=== PATIENT | female | born 1960 | race African-American/Black ===

== ENCOUNTER 2017-02-28 01:14 | Emergency (ER) | payer OTHER ==
--- NOTE | ~2017-02-28 | EKG ---
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
[~2017-02-28 01:14] MED LIST: DILTIAZEM 24HR120 M2 PO; KLOR-CON 1010 MEQ PO; LEVAQUIN 500 M500 M4 PO; LEVAQUIN 500 M500 M6 PO; MAALOX ADVANCE355 M1 PO; MOBIC15 MG PO; NOHOMEMEDICATIONS; OSELB75 PO; PROTONIX40 M1 PO; TOPROL XL25 MG PO
[2017-02-28 03:23] LABS: URINE BILIRUBIN NEGATIVE (Negative); URINE BLOOD NEGATIVE (Negative); URINE COLOR YELLOW; URINE GLUCOSE-RANDOM* NEGATIVE (Negative); URINE KETONES NEGATIVE (Negative); URINE NITRITE NEGATIVE (Negative); URINE PROTEIN (DIPSTICK) NEGATIVE (Negative); URINE SPECIFIC GRAVITY < 1.005 (1.003-1.035); URINE UROBILINOGEN 0.2 E.U./dl (0.2-1.0)
[2017-02-28 03:24] LABS: ALBUMIN 3.9 g/dL (3.4-5.0); ALKALINE PHOSPHATASE 89 U/L (46-116); ANION GAP 13 mmol/L (7-16); BUN 10 mg/dL (7-18); CALCIUM 9.2 mg/dL (8.5-10.1); CHLORIDE 104 mmol/L (98-107); CO2 24 mmol/L (21-32); CREATININE 0.9 mg/dL (0.6-1.0); GLUCOSE 121 mg/dL (74-106); POTASSIUM 3.5 mmol/L (3.5-5.1); SGOT 21 U/L (15-37); SGPT 30 U/L (30-65); SODIUM 141 mmol/L (136-145); TOTAL BILIRUBIN 0.4 mg/dL (<0.1-1.0); TROPONIN-I < 0.04 ng/mL (<0.04-0.07)
[2017-02-28 03:25] LABS: EOSINOPHILS 0.1 % (0.0-3.0); HEMATOCRIT 35.1 % (37.0-47.0); HEMOGLOBIN 12.2 gm/dL (12.0-15.0); LYMPHOCYTES 24.5 % (24.0-44.0); MANUAL DIFF NO; MCH 35.4 pg (26.0-34.0); MCHC 34.7 % (28.0-37.0); MCV 102.2 fL (80.0-100.0); MONOCYTES 7.7 % (1.0-8.0); PLATELET COUNT 250 thou/uL (150-400); POLYS 67.1 % (36.0-66.0); RBC 3.44 mil/uL (4.20-5.00); RDW 14.7 % (10.5-14.5); WBC 8.7 thou/uL (4.0-11.0)
[2017-02-28 03:26] LABS: ABSOLUTE NEUTROPHILS 5.9 thou/uL (1.4-8.2); BASOPHILS 0.6 % (0.0-2.0)
== END 2017-02-28 04:48 | disposition home or self-care (01) ==
LOC: ER 01:14
PROVIDERS: Emergency Medicine
DX: R07.89 Other chest pain (principal); I10 Essential (primary) hypertension; E78.00 Pure hypercholesterolemia, unspecified; Z98.890 Other specified postprocedural states; F10.99 Alcohol use, unspecified with unspecified alcohol-induced disorder

== ENCOUNTER 2017-12-07 16:55 | Emergency (ER) | payer BC, OTHER ==
[~2017-12-07] VITALS: Ht 160 cm; Wt 62.1 kg
--- NOTE | ~2017-12-07 | EKG ---
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: ISRAELISAIAS : 1960 Requested By: Alexandre Orlando Order Number: [id number] MD: Michael Rubio Measurements Intervals [place] Rate: 114 P: 51 FL: 134 QRS: 16 QRSD: 76 T: 3 QT: 308 QTc: 425 Interpretive Statements Sinus tachycardia Probable left atrial enlargement Nonspecific ST segment abnormalities Compared to ECG 02/28/2017 01:23:11 Sinus rhythm no longer present Electronically Signed On 12-08-2017 11:35:15 CDT by Michael Rubio [email or web address] <ELECTRONICALLY SIGNED> By: Michael Rubio MD 12/08/17 1135 1705 1705 MD VIMAL Tinsley
[2017-12-07 17:46] LABS: ABSOLUTE NEUTROPHILS 3.6 thou/uL (1.4-8.2); BASOPHILS 0.7 % (0.0-2.0); HEMATOCRIT 34.9 % (37.0-47.0); LYMPHOCYTES 35.5 % (24.0-44.0); MCH 33.7 pg (26.0-34.0); MCHC 34.4 g/dL (28.0-37.0); MCV 98.1 fL (80.0-100.0); MONOCYTES 8.9 % (1.0-8.0); PLATELET COUNT 280 thou/uL (150-400); POLYS 53.9 % (36.0-66.0); RBC 3.56 mil/uL (4.20-5.00); RDW 13.7 % (10.5-14.5); WBC 6.7 thou/uL (4.0-11.0)
[2017-12-07 17:50] LABS: ANION GAP 8 mmol/L (7-16); BUN 10 mg/dL (7-18); CALCIUM 9.5 mg/dL (8.5-10.1); CHLORIDE 102 mmol/L (98-107); CO2 27 mmol/L (21-32); CREATININE 0.9 mg/dL (0.6-1.0); GLUCOSE 127 mg/dL (74-106); POTASSIUM 3.6 mmol/L (3.5-5.1); SODIUM 137 mmol/L (136-145)
[2017-12-07 18:00] LABS: ALBUMIN 4.2 g/dL (3.4-5.0); MAGNESIUM 1.9 mg/dL (1.8-2.4); SGOT 20 U/L (15-37); SGPT 15 U/L (30-65); TOTAL BILIRUBIN 0.6 mg/dL (<0.1-1.0); TOTAL PROTEIN 8.5 g/dL (6.4-8.2); TROPONIN-I < 0.04 ng/mL (<0.06)
[2017-12-07 18:09] LABS: APTT 21.4 Seconds (24.5-32.8); PROTIME 9.6 Seconds (9.3-11.4)
[2017-12-07 18:22] LABS: D-DIMER 1.21 ug/mLFEU (0.19-0.50)
[2017-12-07 19:16] LABS: URINE BILIRUBIN NEGATIVE (Negative); URINE BLOOD NEGATIVE (Negative); URINE CLARITY CLEAR; URINE COLOR YELLOW; URINE GLUCOSE-RANDOM* NEGATIVE (Negative); URINE KETONES NEGATIVE (Negative); URINE LEUKOCYTES-REFLEX NEGATIVE (Negative); URINE NITRITE-REFLEX NEGATIVE (Negative); URINE PROTEIN (DIPSTICK) NEGATIVE (Negative); URINE SPECIFIC GRAVITY <= 1.005 (1.005-1.035); URINE UROBILINOGEN 0.2 E.U./dl (0.2-1.0)
[2017-12-07 19:25] LABS: AMP/METHAMP Negative (Negative); BARBITURATES Negative (Negative); BENZODIAZEPINES Negative (Negative); COCAINE Negative (Negative); METHADONE Negative (Negative); OPIATES Negative (Negative); PCP Negative (Negative)
== END 2017-12-07 20:30 | disposition home or self-care (01) ==
LOC: ER 16:55
PROVIDERS: Emergency Medicine
DX: R07.9 Chest pain, unspecified (principal); R06.02 Shortness of breath; E86.0 Dehydration

== ENCOUNTER 2018-05-12 11:27 | Emergency (ER) | payer BC, OTHER ==
[~2018-05-12] VITALS: Ht 157.5 cm; Wt 65.8 kg
--- NOTE | ~2018-05-12 | EKG ---
[address] [place] [address] ELECTROCARDIOGRAM REPORT Name: ILYA MAGALLON Room #: [facility]#: [id number] Admission: 05/12/18 Attend Phys: Discharge: 05/12/18 Date of : 64 Report #: [id number] THIS REPORT FOR: //name// 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: [facility] : 1960 Requested By: Cecy Avendano Order Number: [id number] MD: Atilio Terrazas Measurements Intervals [place] Rate: 103 P: 51 NM: 145 QRS: 12 QRSD: 70 T: 0 QT: 335 QTc: 439 Interpretive Statements Sinus tachycardia Otherwise normal tracing Compared to ECG 12/07/2017 17:05:22 No significant change was found Electronically Signed On 05-13-2018 8:04:58 RN TEACHER by Atilio Terrazas [email or web address] <ELECTRONICALLY SIGNED> By: Atilio Terrazas MD, [facility] 05/13/18 0804 1138 1138 Atilio Terrazas MD, FACC /EPI
[~2018-05-12 11:27] MED LIST changes: +ASPIR 8181 MG PO; +LOVASTATIN 20 M20 MG PO; +MOBIC7.5 MG PO; +NORFLEX100 MG PO
[2018-05-12 12:04] LABS: ANION GAP 12 mmol/L (7-16); BUN 11 mg/dL (7-18); CALCIUM 9.8 mg/dL (8.5-10.1); CHLORIDE 101 mmol/L (98-107); CO2 26 mmol/L (21-32); CREATININE 0.9 mg/dL (0.6-1.0); GLUCOSE 119 mg/dL (74-106); POTASSIUM 3.5 mmol/L (3.5-5.1); SODIUM 139 mmol/L (136-145)
[2018-05-12 12:10] LABS: ABSOLUTE NEUTROPHILS 3.6 thou/uL (1.4-8.2); BASOPHILS 0.8 % (0.0-2.0); EOSINOPHILS 1.3 % (0.0-3.0); HEMATOCRIT 35.7 % (37.0-47.0); HEMOGLOBIN 12.4 gm/dL (12.0-15.0); LYMPHOCYTES 38.5 % (24.0-44.0); MCH 34.3 pg (26.0-34.0); MCHC 34.8 g/dL (28.0-37.0); MCV 98.7 fL (80.0-100.0); MONOCYTES 7.7 % (1.0-8.0); PLATELET COUNT 238 thou/uL (150-400); POLYS 51.7 % (36.0-66.0); RBC 3.62 mil/uL (4.20-5.00); RDW 14.1 % (10.5-14.5)
[2018-05-12 12:13] LABS: TROPONIN-I <0.06 ng/mL (<0.06)
[2018-05-12 13:51] VITALS: BP 127/68
== END 2018-05-12 13:52 | disposition home or self-care (01) ==
LOC: ER 11:27
PROVIDERS: Emergency Medicine
DX: R07.89 Other chest pain (principal); R00.2 Palpitations; R20.0 Anesthesia of skin; E78.00 Pure hypercholesterolemia, unspecified; I10 Essential (primary) hypertension; E78.5 Hyperlipidemia, unspecified; Z90.721 Acquired absence of ovaries, unilateral; Z90.89 Acquired absence of other organs; Z86.2 Personal history of diseases of the blood and blood-forming organs and certain disorders involving the immune mechanism